=== PATIENT | male | born 1985 | race African-American/Black ===

== ENCOUNTER 2023-06-29 20:38 | Emergency (ER) | payer MEDICAID ==
[~2023-06-29] VITALS: Ht 188 cm; Wt 93.0 kg
[2023-06-29] MEDS ORDERED: KETOROLAC TROMETHAMINE INJ 30 MG/ML VIAL ONE (21:21)
[2023-06-29] MEDS: KETOROLAC TROMETHAMINE 15 MG/ML VIAL IV ONE (21:37)
[2023-06-29 21:58] LABS: BASOPHILS % (AUTO) 0.1 % (0.0-2.0); EOSINOPHILS # (AUTO) 0.1 K/uL (0.0-0.7); EOSINOPHILS % (AUTO) 0.7 % (0.0-6.0); HEMATOCRIT 34 % (39-51); HEMOGLOBIN 10.7 g/dL (13.5-17.5); LYMPHOCYTES # (AUTO) 1.7 K/uL (0.8-4.8); LYMPHOCYTES % (AUTO) 14.3 % (20.0-44.0); MEAN CORPUSCULAR HEMOGLOBIN 30 PG (26.0-33.0); MEAN CORPUSCULAR HGB CONC 32 g/dl (31.0-36.0); MEAN CORPUSCULAR VOLUME 93 fL (80-96); MONOCYTES # (AUTO) 1.1 K/uL (0.1-1.30); NEUTROPHILS # (AUTO) 9.2 K/uL (1.8-8.9); NEUTROPHILS % (AUTO) 75.9 % (43.0-81.0); PLATELET COUNT (AUTO) 396 K/uL (150-450); RED BLOOD CELL COUNT(AUTO) 3.62 MIL/uL (4.5-6.0); RED CELL DISTRIBUTION WIDTH 16.4 % (11.5-15.0); WHITE BLOOD COUNT (AUTO) 12.1 K/uL (4.3-11.0)
[2023-06-29 22:08] LABS: CALCIUM, SERUM 9.4 mg/dL (8.5-10.1); POTASSIUM 3.3 mmol/L (3.5-5.1)
[2023-06-29 22:12] LABS: INR 0.94 (0.91-1.10); PARTIAL THROMBOPLASTIN TIME 28.5 SEC (24.3-34.3)
[2023-06-29 22:14] LABS: LACTIC ACID 1.4 mmol/L (0.4-2.0)
[2023-06-29 22:21] LABS: ALBUMIN 3.1 g/dL (3.4-5.0); BILIRUBIN,DIRECT 0.1 mg/dL (0.0-0.2); BILIRUBIN,TOTAL 0.2 mg/dL (0.2-1.0); TOTAL PROTEIN, SERUM 7.9 g/dL (6.4-8.2)
[2023-06-29] MEDS ORDERED: COLC0.6T67 PO (22:59)
[2023-06-29 23:55] VITALS: BP 141/83; TEMP 98.2; O2SAT 98
== END 2023-06-29 23:57 | disposition home or self-care (01) ==
LOC: ER 20:44 → EDBD 20:44 → ER 23:57
DX: M10.9 Gout, unspecified (principal)
CPT/HCPCS: 99285; 96374; 93971; 73610; 85025; 80048; 87040 ×2; 83605; 83690; 80076; 84550; 36415; 85730; J1885